=== PATIENT | female | born 1940 | race Caucasian/White ===

== ENCOUNTER → 2016-10-06 | Outpatient (CLI) | payer MEDICARE, BC ==
[~2016-10-06] MED LIST: LORT7.5T3 PO; TYLE500T PO; VENTAER INH
[2016-10-06 12:59] LABS: HEMATOCRIT 34.4 % (35.0-46.0); MEAN CELL VOLUME 89.1 FL (80.0-100.0); MEAN CORPUSCULAR HEMOGLOBIN 28.8 PG (27.0-34.0); MEAN CORPUSCULAR HGB CONC 32.4 % (32.0-36.0); PLATELET COUNT 206 TH/MM3 (150-450); RED BLOOD COUNT 3.87 MIL/MM3 (4.00-5.30); RED CELL DISTRIBUTION WIDTH 18.1 % (11.6-17.2); REVIEW FLAG FINAL; WHITE BLOOD COUNT 4.9 TH/MM3 (4.0-11.0)
[2016-10-06 13:34] LABS: ALKALINE PHOSPHATASE 84 U/L (45-117); ALT (GPT) 17 U/L (10-53); ANION GAP 7 MEQ/L (5-15); AST (GOT) 16 U/L (15-37); BICARBONATE 30.4 MEQ/L (21.0-32.0); BLOOD UREA NITROGEN 7 MG/DL (7-18); CHLORIDE 103 MEQ/L (98-107); GLOMERULAR FILTRATION RATE 66 ML/MIN (>89); GLUCOSE,FASTING 85 MG/DL (74-99); HDL CHOLESTEROL 35.3 MG/DL (40.0-60.0); LDL CHOLESTEROL 101 MG/DL (0-99); POTASSIUM 4.6 MEQ/L (3.5-5.1); SODIUM (NA) 140 MEQ/L (136-145); TOTAL BILIRUBIN ADULT 0.4 MG/DL (0.2-1.0)
[2016-10-06 16:42] LABS: HEMOGLOBIN A1a 1.4 %; HEMOGLOBIN A1b 0.9 %; HEMOGLOBIN Ao 84.3 %; HEMOGLOBIN F 1.7 %; HEMOGLOBIN P3 3.6 %
== END ==
LOC: PLAB 11:10
PROVIDERS: ATTEND Family Medicine
DX: E03.8 Other specified hypothyroidism (principal); Z79.899 Other long term (current) drug therapy
CPT/HCPCS: 36415; 80053; 80061; 83036; 84443; 85027

== ENCOUNTER → 2016-12-25 | Outpatient (CLI) | payer MEDICARE, BC | LOC: PLAB 09:15 | PROVIDERS: ATTEND Family Medicine | DX: E03.9 Hypothyroidism, unspecified (principal) | CPT/HCPCS: 36415; 84443 ==

== ENCOUNTER → 2017-04-20 | Outpatient (CLI) | payer MEDICARE, BC ==
[2017-04-20 13:32] LABS: AUTOMATED NEUTROPHIL # 0.9 TH/MM3 (1.8-7.7); BASOPHIL % 0.9 % (0.0-2.0); EOSINOPHIL # 0.1 TH/MM3 (0-0.4); EOSINOPHIL % 2.3 % (0.0-4.0); HEMATOCRIT 36.5 % (35.0-46.0); LYMPH % 48.4 % (9.0-44.0); LYMPHOCYTE # 1.2 TH/MM3 (1.0-4.8); MEAN CORPUSCULAR HEMOGLOBIN 29.1 PG (27.0-34.0); MEAN CORPUSCULAR HGB CONC 33.4 % (32.0-36.0); MONO % 13.6 % (0.0-8.0); NEUT % 34.8 % (16.0-70.0); PLATELET COUNT 112 TH/MM3 (150-450); RED BLOOD COUNT 4.19 MIL/MM3 (4.00-5.30); RED CELL DISTRIBUTION WIDTH 14.2 % (11.6-17.2); WHITE BLOOD COUNT 2.6 TH/MM3 (4.0-11.0)
[2017-04-20 13:34] LABS: HEMO FLAGS AUTO DIFF
[2017-04-20 14:07] LABS: BANDS 1 % (0-6); EOSINOPHILS 2 % (0-4); NEUTROPHIL # MANUAL DIFF 1.2 TH/MM3 (1.8-7.7); PLATELET ESTIMATE SMEAR LOW (NORMAL); PLATELET MORPHOLOGY NORMAL (NORMAL); POLYS (SEG NEUTROPHILS) 46 % (16-70); SCAN/DIFF FINAL DIFF MANUAL; WBC DIFF SAMPLE 100
== END ==
LOC: PLAB 10:04
PROVIDERS: ATTEND Family Medicine
DX: C50.911 Malignant neoplasm of unspecified site of right female breast (principal); E03.9 Hypothyroidism, unspecified; R53.83 Other fatigue
CPT/HCPCS: 36415; 82607; 84443; 85007; 85027

== ENCOUNTER → 2017-10-14 | Outpatient (CLI) | payer MEDICARE, BC ==
[2017-10-14 13:51] LABS: AUTOMATED NEUTROPHIL # 1.9 TH/MM3 (1.8-7.7); BASOPHIL % 0.7 % (0.0-2.0); EOSINOPHIL % 1.1 % (0.0-4.0); HEMOGLOBIN 12.5 GM/DL (11.6-15.3); LYMPH % 34.7 % (9.0-44.0); LYMPHOCYTE # 1.5 TH/MM3 (1.0-4.8); MEAN CORPUSCULAR HEMOGLOBIN 29.7 PG (27.0-34.0); MEAN CORPUSCULAR HGB CONC 33.7 % (32.0-36.0); MEAN PLATELET VOLUME 8.2 FL (7.0-11.0); MONO % 18.2 % (0.0-8.0); MONOCYTE # 0.8 TH/MM3 (0-0.9); NEUT % 45.3 % (16.0-70.0); PLATELET COUNT 220 TH/MM3 (150-450); RED CELL DISTRIBUTION WIDTH 14.1 % (11.6-17.2); WHITE BLOOD COUNT 4.2 TH/MM3 (4.0-11.0)
[2017-10-14 14:00] LABS: ALBUMIN 3.6 GM/DL (3.4-5.0); AST (GOT) 18 U/L (15-37); BICARBONATE 30.3 MEQ/L (21.0-32.0); BLOOD UREA NITROGEN 9 MG/DL (7-18); CALCIUM 8.7 MG/DL (8.5-10.1); CHLORIDE 104 MEQ/L (98-107); CREATININE 1.04 MG/DL (0.50-1.00); GLOMERULAR FILTRATION RATE 52 ML/MIN (>89); GLUCOSE,RANDOM 80 MG/DL (74-106); SODIUM (NA) 141 MEQ/L (136-145)
[2017-10-14 14:12] LABS: ALKALINE PHOSPHATASE 60 U/L (45-117); ALT (GPT) 19 U/L (10-53); TOTAL BILIRUBIN ADULT 0.5 MG/DL (0.2-1.0); TOTAL PROTEIN 7.6 GM/DL (6.4-8.2)
== END ==
LOC: PLAB 10:37
PROVIDERS: ATTEND Family Medicine
DX: R20.0 Anesthesia of skin (principal); E03.9 Hypothyroidism, unspecified; C50.911 Malignant neoplasm of unspecified site of right female breast
CPT/HCPCS: 36415; 80053; 84443; 85025

== ENCOUNTER 2017-12-21 01:18 | Inpatient (IN) | payer MEDICARE, BC ==
[~2017-12-21] VITALS: Ht 167.6 cm; Wt 52.0 kg
[2017-12-21 01:25] VITALS: BP 149/74; PULSE 79; RESP 16; TEMP 98.5; O2SAT 98
--- NOTE | 2017-12-21 03:23 | RADRPT ---
EXAM DATE/TIME: 12/21/2017 02:45 [facility] COMPARISON: No previous studies available for comparison. INDICATIONS : Please evaluate for any pulmonary disease as patient is being pre-oped for possible right hip surgery . MEDICAL HISTORY : Chronic obstructive pulmonary disease. Osteoporosis. Osteopenia SURGICAL HISTORY : None. ENCOUNTER: Initial ACUITY: 1 day PAIN SCORE: 0/10 LOCATION: Bilateral chest FINDINGS: A single view of the chest demonstrates hyperinflation with biapical parenchymal densities. Heart nor mal in size. Osseous structures are intact. CONCLUSION: 1. Biapical parenchymal densities could be acute or chronic. No prior studies available for compariso n. 2. Hyperinflation which can be seen with COPD. Luis E Cason MD on December 21, 2017 at 3:21 Board Certified Radiologist. This report was verified electronically.
--- NOTE | 2017-12-21 03:25 | RADRPT ---
EXAM DATE/TIME: 12/21/2017 02:29 [facility] COMPARISON: No previous studies available for comparison. INDICATIONS : Right hip pain post fall. MEDICAL HISTORY : Osteoporosis. Chronic obstructive pulmonary disease. Osteopenia SURGICAL HISTORY : None. ENCOUNTER: Initial ACUITY: 1 day PAIN SCORE: 8/10 LOCATION: Right hip FINDINGS: Examination of the right hip was performed with AP Pelvis. Displaced femoral neck fracture. Femoral h ead continues to articulate with the acetabulum.. The acetabulum is grossly intact. CONCLUSION: Mild displaced femoral neck fracture on the right. Luis E Cason MD on December 21, 2017 at 3:22 Board Certified Radiologist. This report was verified electronically.
[2017-12-21 03:45] LABS: AUTOMATED NEUTROPHIL # 4.8 TH/MM3 (1.8-7.7); BASOPHIL % 0.8 % (0.0-2.0); EOSINOPHIL % 0.2 % (0.0-4.0); HEMATOCRIT 37.7 % (35.0-46.0); HEMOGLOBIN 12.5 GM/DL (11.6-15.3); LYMPH % 13.6 % (9.0-44.0); LYMPHOCYTE # 0.9 TH/MM3 (1.0-4.8); MEAN CORPUSCULAR HEMOGLOBIN 28.8 PG (27.0-34.0); MEAN CORPUSCULAR HGB CONC 33.1 % (32.0-36.0); MEAN PLATELET VOLUME 7.7 FL (7.0-11.0); MONO % 11.8 % (0.0-8.0); MONOCYTE # 0.8 TH/MM3 (0-0.9); NEUT % 73.6 % (16.0-70.0); PLATELET COUNT 144 TH/MM3 (150-450); RED BLOOD COUNT 4.33 MIL/MM3 (4.00-5.30); WHITE BLOOD COUNT 6.6 TH/MM3 (4.0-11.0)
--- NOTE | 2017-12-21 03:48 | PD ---
HPI Chief Complaint: Fall Time Seen by Provider: 01:58 Travel History International Travel<30 days: No Contact w/Intl Traveler<30days: No Traveled to known affect area: No History of Present Illness HPI This is a 77-year-old female with a history of breast cancer, hypothyroidism, osteoporosis, who presents today with limits right hip pain after mechanical fall. Patient states she was cleaning her house and getting it ready for a person to come work on her house this morning. She states she was moving boxes outside when she slipped on some wet leaves and fell on her right hip. She denies any loss of consciousness she denies any dizziness prior to the fall. She reports pain in her right hip only. The patient denies any head or neck pain. There are no other complaints at time of examination. PFSH Past Medical History Cancer: No COPD: Yes Diabetes: No Diminished Hearing: No Hepatitis: No Hiatal Hernia: No Medical other: Yes (ddd mild arthritis cataracts and glaucoma) Immunizations Current: No Thyroid Disease: Yes Tetanus Vaccination: Unknown Influenza Vaccination: Yes Tubal Ligation: Yes (1975) Past Surgical History Gynecologic Surgery: Yes (tubal) Oral Surgery: Yes (tonsillectomy) Pacemaker: No Tonsillectomy: Yes (1950) Social History Alcohol Use: Yes (2-3/day) Tobacco Use: No Substance Use: No Allergies-Medications (Allergen,Severity, Reaction): Coded Allergies: No Known Allergies (Verified Adverse Reaction, Unknown, 12/21/17) Reported Meds & Prescriptions Reported Meds & Active Scripts Active Reported Lortab 7.5/500 (Acetaminophen/Hydrocodone Bitart) Tab 1 Tab PO Q3HPRN FOR PAIN Ventolin Hfa (Albuterol Sulfate) 18 Gm Aero 2 Puff INH Q6HPRN * SHAKE WELL BEFORE USE * Tylenol (Acetaminophen) 500 Mg Tab 500 Mg PO Q6HPRN Review of Systems Except as stated in HPI: all other systems reviewed are Neg General / Constitutional: No: Fever, Chills HENT: No: Headaches, Lightheadedness, Neck Pain Cardiovascular: No: Chest Pain or Discomfort, Palpitations Respiratory: No: Cough, Shortness of Breath Gastrointestinal: No: Nausea, Vomiting Genitourinary: No: Dysuria, Incontinence Musculoskeletal: Positive: Limited ROM (Secondary to pain), Pain, No: Weakness (Right hip) Neurologic: No: Weakness, Dizziness, Syncope Physical Exam Narrative GENERAL: Well developed well-nourished female in no acute respiratory distress. SKIN: Focused skin assessment warm/dry. HEAD: Atraumatic. Normocephalic. EYES: Pupils equal and round. No scleral icterus. No injection or drainage. ENT: No nasal bleeding or discharge. Mucous membranes pink and moist. NECK: Trachea midline. Supple. CARDIOVASCULAR: Regular rate and rhythm. No murmur appreciated. RESPIRATORY: No accessory muscle use. Clear to auscultation. Breath sounds equal bilaterally. GASTROINTESTINAL: Abdomen soft, non-tender, nondistended. Hepatic and splenic margins not palpable. MUSCULOSKELETAL: Slight shortening and minimal external rotation of the right lower extremity. Patient has tenderness to palpation over her right proximal femur/hip area. No pelvic instability on rocking. NEUROLOGICAL: Awake and alert. No obvious cranial nerve deficits. Motor grossly within normal limits. Normal speech. Data Data Last Documented VS Vital Signs Date Time Temp Pulse Resp B/P (MAP) Pulse Ox O2 Delivery O2 Flow Rate FiO2 12/21/17 01:25 98.5 79 16 149/74 (99) 98 Orders Orders Hip, Uni(Ap&Lat) W Ap Pelvis (12/21/17 01:59) Chest, Single Ap (12/21/17 02:43) Electrocardiogram (12/21/17 03:13) Complete Blood Count With Diff (12/21/17 03:13) Basic Metabolic Panel (Bmp) (12/21/17 03:13) Prothrombin Time / Inr (Pt) (12/21/17 03:13) Act Partial Throm Time (Ptt) (12/21/17 03:13) Iv Access Insert/Monitor (12/21/17 03:13) Ecg Monitoring (12/21/17 03:13) Oximetry (12/21/17 03:13) Ice/Cold Pack (12/21/17 03:13) Type And Screen (12/21/17 03:13) Labs Laboratory Tests Test 12/21/17 03:35 [facility] Medical Decision Making Medical Screen Exam Complete: Yes Emergency Medical Condition: Yes Differential Diagnosis Right hip fracture versus pelvic fracture versus contusion Narrative Course 77-year-old female with history of cirrhosis, breast cancer, hypothyroidism, presents with right hip pain after mechanical fall. Patient has a right femoral neck fracture. Should be admitted to the medicine service. W consult out for Dr. Colindres who is on-call for orthopedic surgery. Diagnosis Primary Impression: Fracture of femoral neck, right Additional Impressions: Osteoporosis Hypothyroidism History of breast cancer Admitting Information Admitting Physician Requests: Admit Keith Jurado MD Dec 21, 2017 03:47
[2017-12-21 04:05] VITALS: RESP 16; O2SAT 98
[2017-12-21 04:05] LABS: PROTHROMBIN TIME - PATIENT 10.5 SEC (9.8-11.6)
[2017-12-21 04:20] LABS: BICARBONATE 29.8 MEQ/L (21.0-32.0); CALCIUM 9.2 MG/DL (8.5-10.1); CREATININE 0.98 MG/DL (0.50-1.00)
[2017-12-21] MEDS ORDERED: SODIUM CHLORIDE 0.9% FLUSH 10 ML FLUSH IV FLUSH PRN (04:45)
[2017-12-21] MEDS ORDERED: SENNOSIDES 8.6 MG TAB PO PRN (04:45)
[2017-12-21] MEDS ORDERED: ACETAMINOPHEN 325 MG TAB PO PRN (04:45)
[2017-12-21] MEDS ORDERED: ONDANSETRON HCL 4 MG/2 ML VIAL IVP PRN (04:45)
[2017-12-21] MEDS ORDERED: MORPHINE SULFATE 2 MG/ML SYRINGE IV PUSH PRN (04:45)
[2017-12-21] MEDS ORDERED: LACTULOSE SYRUP 20 GM/30 ML CUP PO PRN (04:45)
[2017-12-21] MEDS ORDERED: BISACODYL 10 MG SUPP RECTAL PRN (04:45)
--- NOTE | 2017-12-21 04:57 | HHI.HP ---
HPI Service [facility] Primary Care Physician Dioni Beckford MD Admission Diagnosis right femoral neck fracture, osteoporosis Diagnoses: (1) Fall Diagnosis: Principal (2) Hip fracture, right Diagnosis: Principal (3) COPD (chronic obstructive pulmonary disease) Diagnosis: Principal Travel History International Travel<30 Days: No Contact w/Intl Traveler <30 Da: No Traveled to Known Affected Are: No History of Present Illness This is a 77-year-old female with a PMH of Breast CA and COPD who was brought to the ER by EMS secondary to right hip pain after a fall. Patient states she was cleaning her house and was outside raking some leaves when she slipped and fell onto her right hip. No LOC or head trauma reported. Reports severe right hip pain, constant, 8/10, worse with movement. No other injuries reported. On arrival, BP 149/74, HR 79, O2 sat 98% on RA, Afebrile. CBC unremarkable except for platelets 144. Chemistry unremarkable except for GFR 55. INR 1.0. CXR with hyperinflation. Hip X-ray mild displaced femoral neck fracture on the right. Review of Systems Except as stated in HPI: all other systems reviewed are Neg ROS: 14 point review of systems otherwise negative. Past Family Social History Past Medical History PMH: Breast CA and COPD Past Surgical History PAST SURGICAL HISTORY: Tubal Ligation, Tonsillectomy Allergies: Coded Allergies: No Known Allergies (Verified Allergy, Unknown, 12/21/17) Family History PAST FAMILY HISTORY: Reviewed. No h/o DM or CAD Social History PAST SOCIAL HISTORY: Occasional alcohol. Negative for tobacco or drugs. Physical Exam Vital Signs Vital Signs Date Time Temp Pulse Resp B/P (MAP) Pulse Ox O2 Delivery O2 Flow Rate FiO2 12/21/17 04:05 16 98 Room Air 12/21/17 01:25 98.5 79 16 149/74 (99) 98 Physical Exam PE: GENERAL: Extremely pleasant elderly white female in no acute distress. HEENT: PERRLA, EOMI. No scleral icterus or conjunctival pallor. No lid lag or facial droop. CARDIOVASCULAR: Regular rate and rhythm. No obvious murmurs to auscultation. No chest tenderness to palpation. RESPIRATORY: No obvious rhonchi or wheezing. Clear to auscultation. Breath sounds equal bilaterally. GASTROINTESTINAL: Abdomen soft, non-tender, nondistended. BS normal. MUSCULOSKELETAL: Extremities without clubbing, cyanosis, or edema. No obvious deformities. Decreased ROM of RLE due to injury. NEUROLOGICAL: Awake, alert and oriented x4. No focal neurologic deficits. Moving both upper and lower extremities spontaneously. Laboratory Laboratory Tests Test 12/21/17 03:35 White Blood Count 6.6 Red Blood Count 4.33 Hemoglobin 12.5 Hematocrit 37.7 Mean Corpuscular Volume 87.0 Mean Corpuscular Hemoglobin 28.8 Mean Corpuscular Hemoglobin Concent 33.1 Red Cell Distribution Width 15.0 Platelet Count 144 Mean Platelet Volume 7.7 Neutrophils (%) (Auto) 73.6 Lymphocytes (%) (Auto) 13.6 Monocytes (%) (Auto) 11.8 Eosinophils (%) (Auto) 0.2 Basophils (%) (Auto) 0.8 Neutrophils # (Auto) 4.8 Lymphocytes # (Auto) 0.9 Monocytes # (Auto) 0.8 Eosinophils # (Auto) 0.0 Basophils # (Auto) 0.0 CBC Comment DIFF FINAL Differential Comment Prothrombin Time 10.5 Prothromb Time International Ratio 1.0 Activated Partial Thromboplast Time 23.6 Blood Urea Nitrogen 13 Creatinine 0.98 Random Glucose 113 Calcium Level 9.2 Sodium Level 142 Potassium Level 3.5 Chloride Level 105 Carbon Dioxide Level 29.8 Anion Gap 7 Estimat Glomerular Filtration Rate 55 Result Diagram: 12/21/17 0335 12/21/17 0335 Caprini VTE Risk Assessment Caprini VTE Risk Assessment: Mod/High Risk (score >= 2) Caprini Risk Assessment Model Point Value = 1 Point Value = 2 Point Value = 3 Point Value = 5 Age 41-60 Minor surgery BMI > 25 kg/m2 Swollen legs Varicose veins or History of unexplained or recurrent spontaneous Oral contraceptives or hormone replacement Sepsis (< 1 month) Serious lung disease, including pneumonia (< 1 month) Abnormal pulmonary function Acute myocardial infarction Congestive heart failure (< 1 month) History of inflammatory bowel disease Medical patient at bed rest Age 61-74 Arthroscopic surgery Major open surgery (> 45 min) Laparoscopic surgery (> 45 min) Malignancy Confined to bed (> 72 hours) Immobilizing plaster cast Central venous access Age >= 75 History of VTE Family history of VTE Factor V Leiden Prothrombin [id number] Lupus anticoagulant Anticardiolipin antibodies Elevated serum homocysteine Heparin-induced thrombocytopenia Other congenital or acquired thrombophilia Stroke (< 1 month) Elective arthroplasty Hip, pelvis, or leg fracture Acute spinal cord injury (< 1 month) Prophylaxis Regimen Total Risk Factor Score Risk Level Prophylaxis Regimen 0-1 Low Early ambulation 2 Moderate Order ONE of the following: *Sequential Compression Device (SCD) *Heparin 5000 units SQ BID 3-4 Higher Order ONE of the following medications: *Heparin 5000 units SQ TID *Enoxaparin/Lovenox 40 mg SQ daily (WT < 150 kg, CrCl > 30 mL/min) *Enoxaparin/Lovenox 30 mg SQ daily (WT < 150 kg, CrCl > 10-29 mL/min) *Enoxaparin/Lovenox 30 mg SQ BID (WT < 150 kg, CrCl > 30 mL/min) AND/OR *Sequential Compression Device (SCD) 5 or more Highest Order ONE of the following medications: *Heparin 5000 units SQ TID (Preferred with Epidurals) *Enoxaparin/Lovenox 40 mg SQ daily (WT < 150 kg, CrCl > 30 mL/min) *Enoxaparin/Lovenox 30 mg SQ daily (WT < 150 kg, CrCl > 10-29 mL/min) *Enoxaparin/Lovenox 30 mg SQ BID (WT < 150 kg, CrCl > 30 mL/min) AND *Sequential Compression Device (SCD) Assessment and Plan Problem List: (1) Fall ICD Code: W19.XXXA - Unspecified fall, initial encounter (2) Hip fracture, right ICD Code: S72.001A - Fracture of unspecified part of neck of right femur, initial encounter for closed fracture (3) COPD (chronic obstructive pulmonary disease) ICD Code: J44.9 - Chronic obstructive pulmonary disease, unspecified Assessment and Plan A/P: 1. Fall: s/p mechanical slip and fall, no LOC or head trauma reported. 2. Right Hip Fx: X-ray w/ mild displaced femoral neck fracture, images reviewed by me. Ortho consulted, plan is for surgical intervention. NPO, IVF, analgesics/antiemetics as needed. Pre-op labs reviewed by me, essentially unremarkable, monitor platelets. 3. COPD: Chronic Respiratory Failure, reports chronic cough. CXR w/ hyperinflation, images reviewed by me. DuoNeb prn. 4. DVT Prophylaxis: Anticoagulation post op 5. Social work for d/c planning as needed. 6. Case discussed w/ ER physician at length, labs/records/imaging reviewed by me. Physician Certification 2 Midnight Certification Type: Admission for Inpatient Services Order for Inpatient Services The services are ordered in accordance with Medicare regulations or non- Medicare payer requirements, as applicable. In the case of services not specified as inpatient-only, they are appropriately provided as inpatient services in accordance with the 2-midnight benchmark. Estimated LOS (days): 2 days is the estimated time the patient will need to remain in the hospital, assuming treatment plan goals are met and no additional complications. Post-Hospital Plan: Not yet determined Jessica Garcia MD Dec 21, 2017 04:57
[2017-12-21] MEDS ORDERED: RESP: ALBUTEROL 2.5 MG/IPRATROPIUM 0.5 MG NEB (PRN) NEB (05:00)
[2017-12-21] MEDS: SODIUM CHLOR 0.9% 1000 ML INJ 1,000 ML IV SCH ×2 (05:09→14:36)
[2017-12-21] MEDS ORDERED: LACTATED RINGER'S 1000 ML IV PRN ×2 (07:15→09:15)
[2017-12-21] MEDS ORDERED: CHLORHEXIDINE GLUCONATE 2 % 1 PACK (2 CLOTHS) TOPICAL PRN ×2 (07:15→09:15)
[2017-12-21] MEDS ORDERED: POVIDONE IODINE 5% (ANTISEPSIS KIT) 4 APPLICATIONS EACH NARE PRN ×2 (07:15→09:15)
[2017-12-21 07:42] VITALS: BP 127/65; PULSE 84; RESP 18; TEMP 98.2; O2SAT 98
[2017-12-21] MEDS ORDERED: ANAS1TAB PO (07:49)
[2017-12-21] MEDS ORDERED: LEVO50TA4 PO (07:49)
[2017-12-21] MEDS: ACETAMINOPHEN/HYDROcodone 325 MG/5 MG TAB PO PRN (08:04)
[2017-12-21] MEDS: DOCUSATE SODIUM 50 MG/SENNA 8.6 MG TAB PO SCH ×2 (08:05→20:49)
[2017-12-21] MEDS: SODIUM CHLORIDE 0.9% FLUSH 10 ML FLUSH IV FLUSH SCH ×2 (08:05→20:49)
[2017-12-21] MEDS ORDERED: TRANEXAMIC ACID INJ 780 MG in SODIUM CHLORIDE 0.9% INJ 100 ML IV SCH (08:45)
[2017-12-21] MEDS ORDERED: METOPROLOL TARTRATE 25 MG TAB PO PRN (09:15)
[2017-12-21] MEDS ORDERED: INSULIN HUMAN REGULAR 1,000 UNITS/10 ML VIAL SQ PRN (09:15)
[2017-12-21] MEDS ORDERED: SODIUM CHLORID 0.9% 500 ML IV PRN (09:15)
[2017-12-21] MEDS ORDERED: VANCOMYCIN HCL 1000 MG VIAL ONE ×2 (09:29→09:30)
[2017-12-21] MEDS ORDERED: SODIUM CHLOR 0.9% 250 ML INJ 250 ML ONE (09:30)
[2017-12-21] MEDS ORDERED: GENTAMICIN SULFATE 80 MG/2 ML VIAL ONE (09:30)
[2017-12-21] MEDS ORDERED: APREPITANT 40 MG CAP ONE (09:35)
[2017-12-21] MEDS ORDERED: APREPITANT 40 MG CAP PO ONE (09:45)
[2017-12-21] MEDS ORDERED: ACETAMINOPHEN 1000 MG/100 ML 100 ML IV ONE (09:52)
[2017-12-21] MEDS ORDERED: ceFAZolin INJ 1,000 MG VIAL ONE (10:01)
--- NOTE | 2017-12-21 10:40 | MB ---
cc: Remigio Colindres MD DATE: 12/21/2017 REASON FOR CONSULTATION: Right femoral neck fracture. CONSULTING PHYSICIAN: Dr. Garcia. HISTORY OF PRESENT ILLNESS: Mrs. Marques is a pleasant 77-year-old female who had a fall. She was cleaning her house and was raking leaves. She lost her balance and fell. She describes a mechanical fall. She did not have any dizziness, syncope or loss of consciousness. She had immediate right hip pain. She was unable to stand or ambulate. She presented to the Emergency Room where x-rays revealed a displaced right femoral neck fracture. She is currently awake and alert in the emergency department. Her only complaints is her right hip. Pain is worse with movement and is improved with rest. PAST MEDICAL HISTORY: Illnesses: Breast cancer and COPD. Surgeries: Tubal ligation and tonsillectomy. ALLERGIES: NO KNOWN DRUG ALLERGIES. MEDICATIONS: Please see EMR for a complete list of inpatient medications. This was reviewed. FAMILY HISTORY: Noncontributory. She denies any familial medical problems. SOCIAL HISTORY: The patient drinks alcohol occasionally. She does not currently smoke or use drugs. REVIEW OF SYSTEMS: The patient denies headache, visual changes, neck pain, chest pain, shortness of breath, abdominal pain, nausea, vomiting, recent weight loss, fever, chills, numbness or tingling of her extremities. She complains of right hip pain. The pain is worse with movement. LABORATORY DATA: The patient has a white blood cell count of 6.6, hemoglobin of 12.5, hematocrit of 37.7, platelet count of 144. INR is 1.0. BUN is 13 and creatinine 0.98. PHYSICAL EXAM: GENERAL: The patient is a pleasant 77-year-old female. She is awake and alert. She is alert and oriented x 3. She is in no acute distress. She appears well-developed and well-nourished. VITAL SIGNS: Temperature 98.2, pulse 84, respirations 18, blood pressure 127/65, O2 saturations 98% on room air. HEAD: The patient is normocephalic. EYES: Pupils are equal. NECK: Soft, nontender. The trachea is in the midline. ABDOMEN: Soft, nontender, nondistended. EXTREMITIES: Examination of the bilateral upper extremities reveals no pain with shoulder, elbow or wrist motion. She has intact sensation in all fingers. She has good cap refill in all fingers. Skin is intact. Radial pulses are palpable bilaterally. Examination of the left leg reveals no pain with hip, knee or ankle motion. Skin is intact. Dorsalis pedis pulses are palpable. Sensation is intact. Examination of the right leg reveals tenderness to palpation of her hip. She has pain with any hip motion. She has no tenderness around her knee, tibia or ankle. Skin is intact. Dorsalis pedis pulses palpable. Sensation is intact. X-RAYS: X-rays of the right hip are reviewed. X-rays reveal displaced right femoral neck fracture. IMPRESSION: 1. History of breast cancer. 2. Possible osteoporosis. 3. Displaced right femoral neck fracture. PLAN: Treatment options were discussed with the patient. At this point, I would recommend right hip hemiarthroplasty. The risks of surgery include bleeding, infection, injury to arteries, nerves, blood vessels hip dislocation, leg length discrepancies, as well as medical complications including blood clot, stroke, heart attack and . All questions were answered. I will plan on surgery today. A mid-level provider in my office, nurse practitioner or PA, may see this patient on a follow-up basis and continue to implement the objective of this plan including: Starting or adjusting medications, injections of muscle, tendon, bursa or joints, cast application, orthotic or brace application, physical therapy, further radiographic studies including x-ray, MRI, CT, ultrasounds or bone scan, vascular studies, neurologic studies, or other specialist consultations, and proceeding with surgical management as appropriate. MD CONRADO Minaya/MARY , 10:01 AM , 10:39 AM
--- NOTE | 2017-12-21 10:54 | PD.OP ---
cc: Remigio Mariano MD Operative Report Date of Surgery: Dec 21, 2017 Preoperative Diagnosis: Displaced right femoral neck fracture Postoperative Diagnosis: Procedure: Right hip luis-arthroplasty Anesthesia: Gen. Surgeon: Remigio Mariano Diamond Grinder(s): ABDIEL Chauhan PA-C The surgical procedure was assisted by my physician dental assistant instructor. My P.A. presence was necessary throughout this case for the manipulation and positioning of the surgical extremity. My P.A. was assisting me throughout the duration of this procedure. The skill set of a physician dental assistant instructor was medically necessary to complete this procedure. During the surgical case the surgical assistant was working at the back table and the physician dental assistant instructor was directly assisting me. Operation and Findings: PLAN OF ACTIVITY Weight bear as tolerated. IMPLANTS USED DePuy Corail size [11] stem with size [47] bipolar head and [+8] neck. DRAIN: None DETAILS OF PROCEDURE This patient was brought into the operating room and placed on the OR table. The patient was given anesthesia. The patient received IV antibiotics. The patient was then placed in lateral decubitus position. The hip and leg were prepped with alcohol, followed by Hibiclens and draped in a usual sterile fashion. Clean air was used for this procedure. Time out procedure was performed. The procedure began with a 5 inch incision over the posterolateral hip. The subcutaneous tissue was dissected with the Bovie. The iliotibial band were split in line with fibers. The Charnley retractor was placed. The piriformis and external rotators were released from the femur and tagged with a #1 Vicryl suture. The capsule is now incised and tagged with #1 Vicryl. The femoral neck fracture was now visualized. A corkscrew was now used to remove the femoral head. The femoral head was sized and measured. Soft tissue was now protected. The hip skid was placed underneath the femoral neck. An oscillating saw was used to make a femoral neck cut. At this point attention was turned to preparation of the proximal femur. A box osteotome was used to remove the lateral cortex of the femoral neck. The T- handle reamer was used to open the femoral canal. Next, the canal was broached. A lateralizing reamer was used to help lateralize the prosthesis. At this point a trial head and neck were placed. The hip was reduced. The patient was found to have excellent stability with good range of motion. Trial components were removed. Soft tissue and bone were thoroughly irrigated. A Corail stem was now opened. The stem was now impacted into the proximal femur. Care was taken to keep appropriate anteversion. The head and neck were now impacted onto the stem. The hip was again reduced. The hip was found to have good range of motion and good stability. Leg lengths were clinically equal. The wound was thoroughly irrigated. The capsule, piriformis and iliotibial band were closed with #1 Vicryl. Subcutaneous tissue was closed with 3-0 Vicryl. The skin was closed with keisha. A sterile dressing was applied with Primapore. The patient was placed into a knee immobilizer. The patient was awakened and transferred to the recovery room in stable condition. Needle and sponge counts were correct. Remigio Mariano MD Dec 21, 2017 10:54
[2017-12-21] MEDS ORDERED: MORPHINE SULFATE 4 MG/ML INJ IV PUSH PRN (11:00)
[2017-12-21] MEDS ORDERED: Post-op Orders (for Pharmacy) XX ONE (11:00)
[2017-12-21] MEDS ORDERED: ERGOCALCIFEROL (VIT D2) 50,000 UNIT CAP PO ONE (11:00)
[2017-12-21] MEDS ORDERED: ACETAMINOPHEN/HYDROcodone 325 MG/5 MG TAB PO PRN (11:00)
[2017-12-21] MEDS ORDERED: DO NOT ADM ANY ANTICOAGULANT DRUGS PRN (11:16)
[2017-12-21] MEDS ORDERED: *morphine SULFATE 4 MG/ML PERIprocedure ONLY ONE (11:32)
[2017-12-21] MEDS ORDERED: *MEPERIDINE 25 MG INJ VIAL PERIprocedural Use ONLY ONE (11:33)
[2017-12-21] MEDS ORDERED: LIDOCAINE HCL 1% PF 5 ML SYRINGE OTHER ONE (12:00)
[2017-12-21] MEDS ORDERED: ROCURONIUM INJ 50 MG/5 ML SYRINGE IV PUSH ONE (12:00)
[2017-12-21] MEDS ORDERED: NEOSTIGMINE 5 MG/5 ML SYRINGE IV PUSH ONE (12:00)
[2017-12-21] MEDS ORDERED: ONDANSETRON HCL 4 MG/2 ML VIAL IV ONE (12:00)
[2017-12-21] MEDS ORDERED: GLYCOPYRROLATE 1 MG/5 ML SYRINGE IV PUSH ONE (12:00)
[2017-12-21] MEDS ORDERED: PROPOFOL 200 MG/20 ML AMP IV ONE (12:00)
[2017-12-21] MEDS ORDERED: DEXAMETHASONE SOD PHOS 4 MG/ML VIAL IV ONE (12:00)
--- NOTE | 2017-12-21 13:22 | RADRPT ---
EXAM DATE/TIME: 12/21/2017 12:16 [facility] COMPARISON: HIP RIGHT (AP&LAT 2/3VWS) W AP PELVIS, December 21, 2017, 2:29. INDICATIONS : Post op Right Hip MEDICAL HISTORY : Chronic obstructive pulmonary disease. Osteoporosis. Osteopenia SURGICAL HISTORY : None. ENCOUNTER: Initial ACUITY: 1 day PAIN SCORE: 0/10 LOCATION: Right Hip FINDINGS: A single AP supine view of the pelvis was obtained as well as AP and crosstable lateral views of the right hip. The patient is status post right hip arthroplasty. The femoral and acetabular components a re intact and in normal alignment. There is adjacent soft tissue swelling and gas. There is mild oste openia with no evidence of fracture. CONCLUSION: Expected postoperative changes status post arthroplasty. Jung Benítez MD on December 21, 2017 at 13:18 Board Certified Radiologist. This report was verified electronically.
[2017-12-21] MEDS ORDERED: SODIUM CHLORIDE 0.9% INJ 100 ML ONE (15:23)
[2017-12-21 20:00] VITALS: BP 128/62; PULSE 73; RESP 18; TEMP 97.5; O2SAT 100
[2017-12-22 00:15] VITALS: BP 130/71; PULSE 76; RESP 17; TEMP 98.3; O2SAT 98
--- NOTE | 2017-12-22 00:15 | EKG ---
Date Performed: 12/21/2017 Time Performed: 04:03:30 PTAGE: 77 years EKG: Sinus rhythm NORMAL ECG NO PREVIOUS TRACING DOCTOR: Ravi Jernigan Interpretating Date/Time 12/22/2017 00:08:05
[2017-12-22] MEDS: SODIUM CHLOR 0.9% 1000 ML INJ 1,000 ML IV SCH ×4 (00:36→23:33)
[2017-12-22 04:55] VITALS: BP 111/58; PULSE 79; RESP 17; TEMP 98.1; O2SAT 96
[2017-12-22] MEDS: ACETAMINOPHEN/HYDROcodone 325 MG/5 MG TAB PO PRN ×3 (05:41→14:21)
[2017-12-22 05:53] LABS: AUTOMATED NEUTROPHIL # 6.6 TH/MM3 (1.8-7.7); BASOPHIL % 0.1 % (0.0-2.0); HEMATOCRIT 32.8 % (35.0-46.0); LYMPH % 8.1 % (9.0-44.0); LYMPHOCYTE # 0.7 TH/MM3 (1.0-4.8); MEAN CELL VOLUME 86.9 FL (80.0-100.0); MEAN CORPUSCULAR HEMOGLOBIN 29.3 PG (27.0-34.0); MEAN CORPUSCULAR HGB CONC 33.7 % (32.0-36.0); MEAN PLATELET VOLUME 8.9 FL (7.0-11.0); MONO % 18.1 % (0.0-8.0); MONOCYTE # 1.6 TH/MM3 (0-0.9); NEUT % 73.7 % (16.0-70.0); PLATELET COUNT 106 TH/MM3 (150-450); RED BLOOD COUNT 3.78 MIL/MM3 (4.00-5.30); RED CELL DISTRIBUTION WIDTH 14.7 % (11.6-17.2)
[2017-12-22 06:37] LABS: ALBUMIN 2.6 GM/DL (3.4-5.0); ALKALINE PHOSPHATASE 47 U/L (45-117); ALT (GPT) 12 U/L (10-53); AST (GOT) 22 U/L (15-37); BICARBONATE 25.2 MEQ/L (21.0-32.0); BLOOD UREA NITROGEN 13 MG/DL (7-18); CALCIUM 7.9 MG/DL (8.5-10.1); CHLORIDE 109 MEQ/L (98-107); CREATININE 0.96 MG/DL (0.50-1.00); GLOMERULAR FILTRATION RATE 57 ML/MIN (>89); GLUCOSE,RANDOM 130 MG/DL (74-106); SODIUM (NA) 144 MEQ/L (136-145); TOTAL BILIRUBIN ADULT 0.3 MG/DL (0.2-1.0)
[2017-12-22] MEDS: SODIUM CHLORIDE 0.9% FLUSH 10 ML FLUSH IV FLUSH SCH ×2 (07:59→20:35)
[2017-12-22] MEDS: DOCUSATE SODIUM 50 MG/SENNA 8.6 MG TAB PO SCH ×2 (07:59→20:34)
[2017-12-22] MEDS: CHOLECALCIFEROL (VIT D3) 5000 UNIT CAP PO SCH (07:59)
[2017-12-22 08:00] VITALS: BP 117/56; PULSE 94; RESP 17; TEMP 98.6; O2SAT 95
[2017-12-22] MEDS: ANASTROZOLE 1 MG TAB PO SCH (09:00)
[2017-12-22] MEDS: ENOXAPARIN SODIUM 30 MG/0.3 ML SYRINGE SQ SCH (09:14)
[2017-12-22] MEDS: LEVOTHYROXINE SODIUM 50 MCG TAB PO SCH (09:15)
[2017-12-22] MEDS ORDERED: NORC5TAB PO (10:21)
[2017-12-22] MEDS ORDERED: VITA500012 PO (10:21)
[2017-12-22] MEDS ORDERED: WALKER/ADULT/FO1 MIS (10:21)
[2017-12-22] MEDS ORDERED: CALCTAB19 PO (10:21)
[2017-12-22] MEDS ORDERED: XARE10TA PO (10:21)
[2017-12-22 11:45] VITALS: BP 105/57; PULSE 76; RESP 17; TEMP 98.4; O2SAT 94
--- NOTE | 2017-12-22 13:00 | PD.ORT.PN ---
Subjective Subjective Remarks POD 1 s/p right hip hemiarthroplasty doing well. pain controlled Objective Vitals Vital Signs Date Time Temp Pulse Resp B/P (MAP) Pulse Ox O2 Delivery O2 Flow Rate FiO2 12/22/17 11:45 98.4 76 17 105/57 (73) 94 12/22/17 08:00 98.6 94 17 117/56 (76) 95 12/22/17 04:55 98.1 79 17 111/58 (75) 96 12/22/17 00:15 98.3 76 17 130/71 (90) 98 12/21/17 20:00 97.5 73 18 128/62 (84) 100 12/21/17 18:00 97.1 62 12 123/59 (80) 99 Nasal Cannula 2 12/21/17 16:00 62 12 129/73 (91) 100 Nasal Cannula 2 12/21/17 14:00 66 12 125/69 (87) 99 Nasal Cannula 2 12/21/17 13:00 69 12 123/64 (83) 99 Nasal Cannula 2 I/O 12/21/17 12/21/17 12/21/17 12/22/17 12/22/17 12/22/17 07:00 15:00 23:00 07:00 15:00 23:00 Intake Total 688 ml 480 ml Output Total 100 ml Balance -100 ml 688 ml 480 ml Intake Oral 480 ml IV Total 688 ml Output Estimated Blood Loss 100 ml # Voids 1 3 1 # Bowel Movements 1 0 Result Diagram: 12/22/17 0432 12/22/17 0432 Objective Remarks RLE: dressings clean and dry. intact. +CKS. nvi Assessment & Plan Assessment and Plan 1) Right Hip Hemiarthroplasty - POD 1 -WBAT -posterior hip precautions -knee brace while in bed daily dressing changes with Primapore POD 2 -lovenox -CM for rehab placement -f/u with [facility] or Pa in 2 weeks Haresh Gutiérrez/Law Enforcement Officer PA Dec 22, 2017 13:00
[2017-12-22 16:00] VITALS: BP 118/58; PULSE 76; RESP 18; TEMP 98.9; O2SAT 94
[2017-12-22] MEDS: MAGNESIUM HYDROXIDE SUSP 30 ML CUP PO PRN (20:34)
[2017-12-22 20:50] VITALS: BP 127/59; PULSE 90; RESP 17; TEMP 97.9; O2SAT 96
--- NOTE | 2017-12-22 21:54 | HHI.PR ---
Subjective Remarks Follow up for right femoral neck fracture. Patient is doing well post surgery. No acute concerns. Denies any fever, chills. Pain is well controlled. Objective Vitals Vital Signs Date Time Temp Pulse Resp B/P (MAP) Pulse Ox O2 Delivery O2 Flow Rate FiO2 12/22/17 16:00 98.9 76 18 118/58 (78) 94 12/22/17 11:45 98.4 76 17 105/57 (73) 94 12/22/17 08:00 98.6 94 17 117/56 (76) 95 12/22/17 04:55 98.1 79 17 111/58 (75) 96 12/22/17 00:15 98.3 76 17 130/71 (90) 98 I/O 12/21/17 12/21/17 12/21/17 12/22/17 12/22/17 12/22/17 06:59 14:59 22:59 06:59 14:59 22:59 Intake Total 688 ml 480 ml 480 ml Output Total 100 ml Balance -100 ml 688 ml 480 ml 480 ml Intake Oral 480 ml 480 ml IV Total 688 ml Output Estimated Blood Loss 100 ml # Voids 1 3 1 2 # Bowel Movements 1 0 0 Result Diagram: 12/22/17 0432 12/22/17 0432 Imaging Last Impressions Hip and Pelvis X-Ray 12/21/17 1051 Signed Impressions: Service Date/Time: Thursday, December 21, 2017 12:16 - CONCLUSION: Expected postoperative changes status post arthroplasty. Jung Benítez MD Chest X-Ray 12/21/17 0243 Signed Impressions: Service Date/Time: Thursday, December 21, 2017 02:45 - CONCLUSION: 1. Biapical parenchymal densities could be acute or chronic. No prior studies available for comparison. 2. Hyperinflation which can be seen with COPD. Luis E Cason MD Objective Remarks GENERAL: Alert, Oriented x 3, NAD. SKIN: Warm and dry. HEAD: Normocephalic. EYES: No scleral icterus. No injection or drainage. NECK: Supple, trachea midline. No JVD or lymphadenopathy. CARDIOVASCULAR: Regular rate and rhythm without murmurs, gallops, or rubs. RESPIRATORY: Breath sounds equal bilaterally. No accessory muscle use. GASTROINTESTINAL: Abdomen soft, non-tender, nondistended. MUSCULOSKELETAL: No cyanosis, or edema. s/p right hip surgery. BACK: Nontender without obvious deformity. No CVA tenderness. Procedures 12/21/2017 Right hip luis-arthroplasty A/P Problem List: (1) Fall ICD Code: W19.XXXA - Unspecified fall, initial encounter (2) Hip fracture, right ICD Code: S72.001A - Fracture of unspecified part of neck of right femur, initial encounter for closed fracture (3) COPD (chronic obstructive pulmonary disease) ICD Code: J44.9 - Chronic obstructive pulmonary disease, unspecified Assessment and Plan This is a 77-year-old female with a PMH of Breast CA and COPD who was brought to the ER by EMS secondary to right hip pain after a fall. Patient states she was cleaning her house and was outside raking some leaves when she slipped and fell onto her right hip. Hip X-ray mild displaced femoral neck fracture on the right. Displaced right femoral neck fracture s/p right hip luis-arthroplasty [place], Morphine for pain Lovenox 30mg Q24hrs, Bowel regimen Hypothyroidism Hx of breast cancer - Continue Levothyroxine and Anastrozole. Full code. Lovenox. Probable discharge on 12/24/2017. Phoebe Peters DO Dec 22, 2017 21:54
[2017-12-23] MEDS: ACETAMINOPHEN/HYDROcodone 325 MG/5 MG TAB PO PRN ×4 (00:55→18:05)
[2017-12-23 00:57] VITALS: BP 149/69; PULSE 88; RESP 17; TEMP 98.6; O2SAT 93
[2017-12-23 04:15] VITALS: BP 111/56; PULSE 87; RESP 17; TEMP 98.3; O2SAT 93
[2017-12-23] MEDS: LEVOTHYROXINE SODIUM 50 MCG TAB PO SCH (06:06)
--- NOTE | 2017-12-23 07:22 | PD.ORT.PN ---
Subjective Subjective Remarks POD 2 s/p right hip hemiarthroplasty doing well. pain controlled. Out of bed yesterday with therapy. States the pain is improving. Objective Vitals Vital Signs Date Time Temp Pulse Resp B/P (MAP) Pulse Ox O2 Delivery O2 Flow Rate FiO2 12/23/17 04:15 98.3 87 17 111/56 (74) 93 12/23/17 00:57 98.6 88 17 149/69 (95) 93 12/22/17 20:50 97.9 90 17 127/59 (81) 96 12/22/17 16:00 98.9 76 18 118/58 (78) 94 12/22/17 11:45 98.4 76 17 105/57 (73) 94 12/22/17 08:00 98.6 94 17 117/56 (76) 95 I/O 12/22/17 12/22/17 12/22/17 12/23/17 12/23/17 12/23/17 07:00 15:00 23:00 07:00 15:00 23:00 Intake Total 480 ml 480 ml 360 ml Balance 480 ml 480 ml 360 ml Intake Oral 480 ml 480 ml 360 ml # Voids 1 2 2 # Bowel Movements 0 0 0 Result Diagram: 12/22/1743112/22/17431 Objective Remarks RLE: dressings clean and dry. intact. +CKS. nvi Assessment & Plan Assessment and Plan 1) Right Hip Hemiarthroplasty - POD 2 -WBAT -posterior hip precautions -knee brace while in bed daily dressing changes with Primapore POD 2 -lovenox -CM for rehab placement -f/u with [facility] or [facility] in 2 weeks Haresh Gutiérrez/[employer]ow Farm Technician [place] Dec 23, 2017 07:22
[2017-12-23 08:03] VITALS: BP 118/56; PULSE 96; RESP 18; TEMP 98.6; O2SAT 93
[2017-12-23] MEDS: CHOLECALCIFEROL (VIT D3) 5000 UNIT CAP PO SCH (08:45)
[2017-12-23] MEDS: DOCUSATE SODIUM 50 MG/SENNA 8.6 MG TAB PO SCH ×2 (08:45→19:36)
[2017-12-23] MEDS: ANASTROZOLE 1 MG TAB PO SCH (08:46)
[2017-12-23] MEDS: MAGNESIUM HYDROXIDE SUSP 30 ML CUP PO PRN (08:47)
[2017-12-23] MEDS: ENOXAPARIN SODIUM 30 MG/0.3 ML SYRINGE SQ SCH (08:47)
[2017-12-23 12:00] VITALS: BP 112/58; PULSE 98; RESP 18; TEMP 97.9; O2SAT 95
[2017-12-23 15:00] VITALS: BP 130/63; PULSE 96; RESP 18; TEMP 98; O2SAT 93
[2017-12-23] MEDS: SODIUM CHLOR 0.9% 1000 ML INJ 1,000 ML IV SCH ×2 (16:36→19:07)
[2017-12-23] MEDS: SODIUM CHLORIDE 0.9% FLUSH 10 ML FLUSH IV FLUSH SCH (19:37)
[2017-12-23 20:00] VITALS: BP 113/55; PULSE 87; RESP 18; TEMP 98.5; O2SAT 95
--- NOTE | 2017-12-23 20:41 | HHI.PR ---
Subjective Remarks Follow up for right femoral neck fracture. Doing well. Sitting in her chair. No acute concerns. Objective Vitals Vital Signs Date Time Temp Pulse Resp B/P (MAP) Pulse Ox O2 Delivery O2 Flow Rate FiO2 12/23/17 20:00 98.5 87 18 113/55 (74) 95 12/23/17 15:00 98.0 96 18 130/63 (85) 93 12/23/17 12:00 97.9 98 18 112/58 (76) 95 12/23/17 08:03 98.6 96 18 118/56 (76) 93 12/23/17 04:15 98.3 87 17 111/56 (74) 93 12/23/17 00:57 98.6 88 17 149/69 (95) 93 12/22/17 20:50 97.9 90 17 127/59 (81) 96 I/O 12/22/17 12/22/17 12/22/17 12/23/17 12/23/17 12/23/17 07:00 15:00 23:00 07:00 15:00 23:00 Intake Total 480 ml 480 ml 360 ml 600 ml Balance 480 ml 480 ml 360 ml 600 ml Intake Oral 480 ml 480 ml 360 ml 600 ml # Voids 1 2 2 3 # Bowel Movements 0 0 0 3 Result Diagram: 12/22/17 0432 12/22/17 0432 Imaging Last Impressions Hip and Pelvis X-Ray 12/21/17 1051 Signed Impressions: Service Date/Time: Thursday, December 21, 2017 12:16 - CONCLUSION: Expected postoperative changes status post arthroplasty. Jung Benítez MD Chest X-Ray 12/21/17 0243 Signed Impressions: Service Date/Time: Thursday, December 21, 2017 02:45 - CONCLUSION: 1. Biapical parenchymal densities could be acute or chronic. No prior studies available for comparison. 2. Hyperinflation which can be seen with COPD. Luis E Cason MD Objective Remarks GENERAL: Alert, Oriented x 3, NAD. SKIN: Warm and dry. HEAD: Normocephalic. EYES: No scleral icterus. No injection or drainage. NECK: Supple, trachea midline. No JVD or lymphadenopathy. CARDIOVASCULAR: Regular rate and rhythm without murmurs, gallops, or rubs. RESPIRATORY: Breath sounds equal bilaterally. No accessory muscle use. GASTROINTESTINAL: Abdomen soft, non-tender, nondistended. MUSCULOSKELETAL: No cyanosis, or edema. s/p right hip sx. BACK: Nontender without obvious deformity. No CVA tenderness. A/P Problem List: (1) Fall ICD Code: W19.XXXA - Unspecified fall, initial encounter (2) Hip fracture, right ICD Code: S72.001A - Fracture of unspecified part of neck of right femur, initial encounter for closed fracture (3) COPD (chronic obstructive pulmonary disease) ICD Code: J44.9 - Chronic obstructive pulmonary disease, unspecified Assessment and Plan This is a 77-year-old female with a PMH of Breast CA and COPD who was brought to the ER by EMS secondary to right hip pain after a fall. Patient states she was cleaning her house and was outside raking some leaves when she slipped and fell onto her right hip. Hip X-ray mild displaced femoral neck fracture on the right. Displaced right femoral neck fracture s/p right hip luis-arthroplasty [place], Morphine for pain Lovenox 30mg Q24hrs, Bowel regimen Hypothyroidism Hx of breast cancer - Continue Levothyroxine and Anastrozole. Full code. Lovenox. Likely discharge tomorrow. Phoebe Peters DO Dec 23, 2017 20:41
[2017-12-24 00:19] VITALS: BP 121/64; PULSE 89; RESP 18; TEMP 97.9; O2SAT 95
[2017-12-24] MEDS: LEVOTHYROXINE SODIUM 50 MCG TAB PO SCH (05:03)
--- NOTE | 2017-12-24 06:34 | PD.ORT.PN ---
Subjective Subjective Remarks POD 3 s/p right hip hemiarthroplasty doing well. pain controlled. Out of bed yesterday with therapy. States the pain is improving. Objective Vitals Vital Signs Date Time Temp Pulse Resp B/P (MAP) Pulse Ox O2 Delivery O2 Flow Rate FiO2 12/24/17 00:19 97.9 89 18 121/64 (83) 95 12/23/17 20:00 98.5 87 18 113/55 (74) 95 12/23/17 15:00 98.0 96 18 130/63 (85) 93 12/23/17 12:00 97.9 98 18 112/58 (76) 95 12/23/17 08:03 98.6 96 18 118/56 (76) 93 I/O 12/23/17 12/23/17 12/23/17 12/24/17 12/24/17 12/24/17 07:00 15:00 23:00 07:00 15:00 23:00 Intake Total 360 ml 600 ml Balance 360 ml 600 ml Intake Oral 360 ml 600 ml # Voids 2 3 # Bowel Movements 0 3 Result Diagram: 12/22/172 12/22/17 043 Objective Remarks RLE: dressings clean and dry. intact. +CKS. nvi Assessment & Plan Assessment and Plan 1) Right Hip Hemiarthroplasty - POD 3 -WBAT -posterior hip precautions -knee brace while in bed daily dressing changes with Primapore -lovenox -CM for rehab placement -ortho clear for DC to SNF -f/u with [facility] or [facility] in 2 weeks Haresh Gutiérrez/Ict Analyst [facility] Dec 24, 2017 06:34
[2017-12-24 08:00] VITALS: BP 130/66; PULSE 100; RESP 19; TEMP 98.4; O2SAT 90
[2017-12-24] MEDS: CHOLECALCIFEROL (VIT D3) 5000 UNIT CAP PO SCH (09:30)
[2017-12-24] MEDS: DOCUSATE SODIUM 50 MG/SENNA 8.6 MG TAB PO SCH (09:30)
[2017-12-24] MEDS: ANASTROZOLE 1 MG TAB PO SCH (09:30)
[2017-12-24] MEDS: SODIUM CHLORIDE 0.9% FLUSH 10 ML FLUSH IV FLUSH SCH (09:31)
[2017-12-24] MEDS: ENOXAPARIN SODIUM 30 MG/0.3 ML SYRINGE SQ SCH ×2 (09:35→12:14)
[2017-12-24 12:02] VITALS: BP 123/60; PULSE 98; RESP 20; TEMP 99.3; O2SAT 93
[2017-12-24] MEDS: ACETAMINOPHEN/HYDROcodone 325 MG/5 MG TAB PO PRN (12:16)
--- NOTE | 2017-12-24 16:26 | HHI.DS ---
Discharge Summary Admission Date Dec 21, 2017 at 3:50 am Discharge Date: Dec 24, 2017 Admitting Diagnosis right femoral neck fracture, osteoporosis (1) Fall ICD Code: W19.XXXA - Unspecified fall, initial encounter (2) Hip fracture, right ICD Code: S72.001A - Fracture of unspecified part of neck of right femur, initial encounter for closed fracture (3) COPD (chronic obstructive pulmonary disease) ICD Code: J44.9 - Chronic obstructive pulmonary disease, unspecified Procedures 12/21/2017 Right hip luis-arthroplasty Brief History - From Admission This is a 77-year-old female with a PMH of Breast CA and COPD who was brought to the ER by EMS secondary to right hip pain after a fall. Patient states she was cleaning her house and was outside raking some leaves when she slipped and fell onto her right hip. No LOC or head trauma reported. Reports severe right hip pain, constant, 8/10, worse with movement. No other injuries reported. On arrival, BP 149/74, HR 79, O2 sat 98% on RA, Afebrile. CBC unremarkable except for platelets 144. Chemistry unremarkable except for GFR 55. INR 1.0. CXR with hyperinflation. Hip X-ray mild displaced femoral neck fracture on the right. CBC/BMP: 12/22/17 0432 12/22/17 0432 Significant Findings Laboratory Tests Test 12/22/17 04:32 Red Blood Count 3.78 MIL/MM3 (4.00-5.30) Hemoglobin 11.0 GM/DL (11.6-15.3) Hematocrit 32.8 % (35.0-46.0) Platelet Count 106 TH/MM3 (150-450) Neutrophils (%) (Auto) 73.7 % (16.0-70.0) Lymphocytes (%) (Auto) 8.1 % (9.0-44.0) Monocytes (%) (Auto) 18.1 % (0.0-8.0) Lymphocytes # (Auto) 0.7 TH/MM3 (1.0-4.8) Monocytes # (Auto) 1.6 TH/MM3 (0-0.9) Random Glucose 130 MG/DL (74-106) Total Protein 6.0 GM/DL (6.4-8.2) Albumin 2.6 GM/DL (3.4-5.0) Calcium Level 7.9 MG/DL (8.5-10.1) Chloride Level 109 MEQ/L (98-107) Estimat Glomerular Filtration Rate 57 ML/MIN (>89) Imaging Last Impressions Hip and Pelvis X-Ray 12/21/17 1051 Signed Impressions: Service Date/Time: Thursday, December 21, 2017 12:16 - CONCLUSION: Expected postoperative changes status post arthroplasty. Jung Benítez MD Chest X-Ray 12/21/17 0243 Signed Impressions: Service Date/Time: Thursday, December 21, 2017 02:45 - CONCLUSION: 1. Biapical parenchymal densities could be acute or chronic. No prior studies available for comparison. 2. Hyperinflation which can be seen with COPD. Luis E Cason MD PE at Discharge GENERAL: Alert, Oriented x 3, NAD. SKIN: Warm and dry. HEAD: Normocephalic. EYES: No scleral icterus. No injection or drainage. NECK: Supple, trachea midline. No JVD or lymphadenopathy. CARDIOVASCULAR: Regular rate and rhythm without murmurs, gallops, or rubs. RESPIRATORY: Breath sounds equal bilaterally. No accessory muscle use. GASTROINTESTINAL: Abdomen soft, non-tender, nondistended. MUSCULOSKELETAL: No cyanosis, or edema. s/p right hip sx. BACK: Nontender without obvious deformity. No CVA tenderness. Pt update on day of discharge Patient is doing well. Ambulating well. Tolerating diet. No acute concerns. Hospital Course This is a 77-year-old female with a PMH of Breast CA and COPD who was brought to the ER by EMS secondary to right hip pain after a fall. Patient states she was cleaning her house and was outside raking some leaves when she slipped and fell onto her right hip. Hip X-ray mild displaced femoral neck fracture on the right. Displaced right femoral neck fracture s/p right hip luis-arthroplasty [place], Morphine for pain Lovenox 30mg Q24hrs, Bowel regimen Hypothyroidism Hx of breast cancer - Continue Levothyroxine and Anastrozole. Full code. Xarelto for anti-coagulation upon discharge. Pt Condition on Discharge: Good Discharge Disposition: Discharge to SNF Discharge Time: <= 30 minutes Discharge Instructions DIET: Follow Instructions for: As Tolerated, No Restrictions Activities you can perform: Regular-No Restrictions, Weight Bearing as [place] Follow up Referrals: Orthopedics - 2 Weeks @ [facility] with Remigio Colindres MD New Medications: Calcium Carbonate-Vitamin D (Calcium 600+D 200) 600-200 Mg-Unit Tab 1 TAB PO BID for Nutritional Supplement, #90 TAB 0 Refills Ergocalciferol (Ergocalciferol) 50,000 Unit Cap 22044 UNITS PO Q7D for Nutritional Supplement, #8 CAP Hydrocodone-Acetaminophen ([place]) 5 Mg-325 Mg Tab 1 TAB PO Q4H PRN for PAIN, #40 TAB 0 Refills Rivaroxaban (Xarelto) 10 Mg Tab 10 MG PO DAILY for Blood Clot Prevention, #14 TAB 0 Refills Walker/Adult/Folding (Walker/Adult/Folding) 1 Mis Mis EA .XX DIRECTED, #1 0 Refills Continued Medications: Acetaminophen (Acetaminophen) 500 Mg Tab 500 MG PO Q6HPRN Albuterol Sulfate (Ventolin Hfa) 18 Gm Aero 2 PUFF INH Q6HPRN, #1 * SHAKE WELL BEFORE USE * Anastrozole (Anastrozole) 1 Mg Tab 1 MG PO DAILY for Breast Cancer, #30 TAB 0 Refills Levothyroxine (Levothyroxine) 50 Mcg Tab 50 MCG PO DAILY for Thyroid, #30 TAB 0 Refills Discontinued Medications: Hydrocodone-Acetaminophen (Lortab 7.5/500) Tab 1 TAB PO Q3HPRN FOR PAIN Phoebe Peters DO Dec 24, 2017 4:26 pm
== END 2017-12-24 14:22 | DRG 470 ==
LOC: NEPE 01:18 → NEDH 03:50 → NEPFCDU 05:26 → N06B 10:13 → N06A 18:39
PROVIDERS: ADMIT Hospitalist; ATTEND Hospitalist
PROC: 0SRR0JA Replacement of Right Hip Joint, Femoral Surface with Synthetic Substitute, Uncemented, Open Approach (ICD-10-PCS; principal; 2017-12-21 09:59)
DX: S72.001A Fracture of unspecified part of neck of right femur, initial encounter for closed fracture (principal); J96.10 Chronic respiratory failure, unspecified whether with hypoxia or hypercapnia; J44.9 Chronic obstructive pulmonary disease, unspecified; E03.9 Hypothyroidism, unspecified; H40.9 Unspecified glaucoma; M81.0 Age-related osteoporosis without current pathological fracture; W01.0XXA Fall on same level from slipping, tripping and stumbling without subsequent striking against object, initial encounter; Y92.017 Garden or yard in single-family (private) house as the place of occurrence of the external cause; Y93.H1 Activity, digging, shoveling and raking; Z85.3 Personal history of malignant neoplasm of breast
CPT/HCPCS: 71045; 73502; 80048; 80053; 82306; 85025; 85610; 85730; 86850; 86900; 86901; 88305; 88311; 93005; C1776; J0131; J0690; J1100; J1580; J1650; J2175; J2270; J2405; J2710; J3010; J3370; J7030; J7050; J7120; J8501; L1830